=== PATIENT | female | born 1975 | race Caucasian/White ===

== ENCOUNTER 2021-01-21 21:25 | Emergency (ER) | payer MEDICAID ==
[~2021-01-21] VITALS: Ht 160 cm; Wt 111.1 kg
--- NOTE | 2021-01-21 22:03 | NUR ---
PATIENT BIBSELF C/O CONGESTION X 1 MONTH WORST TODAY. PATIENT IS A/O X 4, RR EVEN AND UNLABORED, NO SIGNS OF SOB. PATIENT CONNECTED TO [employer] AND POX.
[2021-01-21] MEDS ORDERED: PROM473S7 PO (22:44)
[2021-01-21] MEDS ORDERED: phenergan (22:44)
[2021-01-21] MEDS ORDERED: ALBU18HF2 INH (22:46)
--- NOTE | 2021-01-21 23:01 | NUR ---
Patient discharged to home in stable condition. RX and Written and verbal after care instructions given. Patient verbalizes understanding of instruction.
[2021-01-21 23:03] VITALS: BP 152/81
== END 2021-01-21 23:04 | disposition home or self-care (01) ==
LOC: ER 21:25
DX: R05 Cough (principal); Z20.822 Contact with and (suspected) exposure to COVID-19; I10 Essential (primary) hypertension; Z95.5 Presence of coronary angioplasty implant and graft; E11.9 Type 2 diabetes mellitus without complications
CPT/HCPCS: 87426; 99283; C9803

== ENCOUNTER 2021-01-24 21:23 | Emergency (ER) | payer MEDICAID, OTHER ==
[~2021-01-24] VITALS: Ht 160 cm; Wt 111.1 kg
[~2021-01-24 21:23] MED LIST: ALBU18HF2 INH; PROM473S7 PO
--- NOTE | 2021-01-24 21:30 | NUR ---
PRESENTED TO THE ER FOR C/O R FOREHEAD BUMPS/P FALL W/ SYNCOPAL EPISODE. PT W/ HX OF CARDIAC STENT AT [facility]. PT A, OX4, AMBULATORY TO BED 2 ER. WAS PLACED NEHEMIAHFranco HOLLOWAY. AWAITING FOR 's NEGRITA
[2021-01-24 22:07] LABS: BASOPHILS # (AUTO) 0.1 K/uL (0.0-0.2); BASOPHILS % (AUTO) 0.7 % (0.0-2.0); EOSINOPHILS % (AUTO) 3.6 % (0.0-6.0); HEMATOCRIT 36 % (33-45); HEMOGLOBIN 11.8 g/dL (11.5-14.8); LYMPHOCYTES # (AUTO) 2.8 K/uL (0.8-4.8); MEAN CORPUSCULAR HGB CONC 33 g/dl (31.0-36.0); MEAN CORPUSCULAR VOLUME 83 fL (82-100); MONOCYTES # (AUTO) 0.5 K/uL (0.1-1.30); MONOCYTES % (AUTO) 5.2 % (2.0-12.0); NEUTROPHILS # (AUTO) 5.6 K/uL (1.8-8.9); NEUTROPHILS % (AUTO) 60.5 % (43.0-81.0); PLATELET COUNT (AUTO) 280 K/uL (150-450); RED BLOOD CELL COUNT(AUTO) 4.36 MIL/uL (4.0-5.2); WHITE BLOOD COUNT (AUTO) 9.2 K/uL (4.3-11.0)
[2021-01-24 22:20] LABS: CALCIUM, SERUM 8.8 mg/dL (8.5-10.1); CARBON DIOXIDE 22 mmol/L (21-32); CHLORIDE 103 mmol/L (98-107); CREATININE 0.9 mg/dL (0.6-1.3); GLUCOSE 150 mg/dL (74-106); POTASSIUM 4.2 mmol/L (3.5-5.1); SODIUM SERUM 137 mmol/L (136-145); UREA NITROGEN, BLOOD 14 mg/dL (7-18)
--- NOTE | 2021-01-24 22:32 | NUR ---
BACK FROM CT
[2021-01-24] MEDS ORDERED: ALBU18HF2 INH (23:53)
--- NOTE | 2021-01-24 23:56 | NUR ---
Patient does not wish to proceed with medical care recommended by Dr. TINAJERO. Patient given information related to possible complications, up to and including , which could occur as a result of leaving the hospital at this time. Patient verbalizes understanding of risks involved due to leaving against medical advice. Patient has signed AMA form.IV removed. Catheter intact and site benign. Pressure and 4x4 applied to site. No bleeding noted.
[2021-01-25 01:02] VITALS: BP 144/85
== END 2021-01-25 | disposition left against medical advice (07) ==
LOC: ER 21:25
DX: R55 Syncope and collapse (principal); S00.83XA Contusion of other part of head, initial encounter; Y92.89 Other specified places as the place of occurrence of the external cause; W18.30XA Fall on same level, unspecified, initial encounter; S80.01XA Contusion of right knee, initial encounter; D32.0 Benign neoplasm of cerebral meninges; I25.10 Atherosclerotic heart disease of native coronary artery without angina pectoris; Z95.5 Presence of coronary angioplasty implant and graft; I10 Essential (primary) hypertension; E11.9 Type 2 diabetes mellitus without complications; Z20.822 Contact with and (suspected) exposure to COVID-19; M54.2 Cervicalgia
CPT/HCPCS: 36415; 70450; 71045; 72125; 73560; 80048; 82962; 84484; 85025; 87426; 93005; 99285; C9803

== ENCOUNTER 2021-02-23 23:28 | Emergency (ER) | payer OTHER ==
[~2021-02-23] VITALS: Ht 160 cm; Wt 110.2 kg
--- NOTE | 2021-02-23 23:40 | NUR ---
PT BIBS WITH COMPLAINTS OF EARPAIN. ALERT AND ORIENTED X4. AMBULATORY WITH NON LABORED SPONTANEOUS BREATHING.
[2021-02-23] MEDS ORDERED: FLUT16SP BNOSTRILS (23:55)
[2021-02-23] MEDS ORDERED: IBUP-1957 PO (23:55)
--- NOTE | 2021-02-24 00:02 | NUR ---
Patient discharged to home in stable condition. Written and verbal after care instructions given. Patient verbalizes understanding of instruction. given RX.
[2021-02-24 00:04] VITALS: BP 130/90
== END 2021-02-24 00:05 | disposition home or self-care (01) ==
LOC: ER 23:35
DX: R59.0 Localized enlarged lymph nodes (principal); I10 Essential (primary) hypertension; E11.9 Type 2 diabetes mellitus without complications; F32.9 Major depressive disorder, single episode, unspecified; E07.9 Disorder of thyroid, unspecified; Z79.899 Other long term (current) drug therapy

== ENCOUNTER 2021-07-11 23:39 | Emergency (ER) | payer OTHER ==
[~2021-07-11] VITALS: Ht 160 cm; Wt 106.6 kg
[~2021-07-11 23:39] MED LIST changes: +FLUT16SP BNOSTRILS; +IBUP-1957 PO
--- NOTE | 2021-07-12 01:35 | NUR ---
PRESENTED TO THE ER FOR C.O FLU LIKE SYMPTOMS SUCH CHILLS, SORE THROAT, BODY ACHE, NEW LOSS OF TASTE AND SMELL. PT WAS TESTED + FOR ANTIGEN COVID ON . TOOK TYLENOL 1500MG AT 1700. PT WAS PLACED IN BED 8, ISOLATION PRECAUTION IMPLEMENTED . NEEDS MET. VSS .WILL CONT TO MONITOR ,
--- NOTE | 2021-07-12 02:31 | NUR ---
CALL FROM LAB. RAPID COVID POSITIVE.
[2021-07-12] MEDS ORDERED: GUAI10SY3 PO ×2 (02:40→02:50)
--- NOTE | 2021-07-12 03:01 | NUR ---
Patient discharged to home in stable condition. Written and verbal after care instructions given. Patient verbalizes understanding of instruction.
[2021-07-12 03:02] VITALS: BP 161/84
== END 2021-07-12 03:02 | disposition home or self-care (01) ==
LOC: ER 23:39
DX: U07.1 COVID-19 (principal); E11.9 Type 2 diabetes mellitus without complications; I10 Essential (primary) hypertension; Z95.5 Presence of coronary angioplasty implant and graft; R51.9 Headache, unspecified
CPT/HCPCS: 87426; 87804; 99283; C9803

== ENCOUNTER 2022-09-19 00:53 | Emergency (ER) | payer OTHER ==
[~2022-09-19] VITALS: Ht 160 cm; Wt 106.6 kg
[~2022-09-19 00:53] MED LIST changes: +GUAI10SY3 PO
[2022-09-19] MEDS ORDERED: TDAP [DIPH/PERTUSSIS/TET] 0.5 ML VIAL IM ONE (01:30)
[2022-09-19 01:46] VITALS: BP 146/93
[2022-09-19] MEDS ORDERED: PSEU60TA98 PO (01:48)
== END 2022-09-19 03:25 | disposition home or self-care (01) ==
LOC: ER 00:56
DX: B34.9 Viral infection, unspecified (principal); I10 Essential (primary) hypertension; E11.9 Type 2 diabetes mellitus without complications; F32.A Depression, unspecified; Z95.1 Presence of aortocoronary bypass graft; Z79.899 Other long term (current) drug therapy; Z20.822 Contact with and (suspected) exposure to COVID-19
CPT/HCPCS: 99284; 71045; 87426; C9803

== ENCOUNTER 2023-05-01 20:14 | Emergency (ER) | payer SELFPAY ==
[~2023-05-01] VITALS: Ht 160 cm; Wt 108.0 kg
[~2023-05-01 20:14] MED LIST changes: +PSEU60TA98 PO
[2023-05-01] MEDS ORDERED: LORAZEPAM 1 MG TABLET PO ONE (21:00)
[2023-05-01] MEDS ORDERED: LORAZEPAM 1 MG TABLET ONE (21:05)
[2023-05-01 22:06] VITALS: BP 138/98; TEMP 98; O2SAT 98
== END 2023-05-01 22:07 | disposition home or self-care (01) ==
LOC: ER 20:23
DX: F41.9 Anxiety disorder, unspecified (principal); F43.9 Reaction to severe stress, unspecified; I10 Essential (primary) hypertension; E11.9 Type 2 diabetes mellitus without complications; F32.A Depression, unspecified; Z79.899 Other long term (current) drug therapy

== ENCOUNTER 2023-11-23 03:22 | Emergency (ER) | payer SELFPAY ==
[~2023-11-23] VITALS: Ht 160 cm; Wt 111.1 kg
[2023-11-23 03:33] VITALS: BP 127/61; TEMP 98.1; O2SAT 100
[2023-11-23] MEDS ORDERED: KETOROLAC TROMETHAMINE INJ 30 MG/ML VIAL ONE (04:04)
[2023-11-23] MEDS: IV NS 0.9% 1,000 ML BAG IV ONE (04:11)
[2023-11-23] MEDS: KETOROLAC TROMETHAMINE 15 MG/ML VIAL IV ONE (04:11)
[2023-11-23 04:12] LABS: BASOPHILS % (AUTO) 0.5 % (0.0-2.0); EOSINOPHILS # (AUTO) 0.2 K/uL (0.0-0.7); EOSINOPHILS % (AUTO) 2.5 % (0.0-6.0); HEMATOCRIT 32 % (33-45); HEMOGLOBIN 10.4 g/dL (11.5-14.8); LYMPHOCYTES # (AUTO) 2.6 K/uL (0.8-4.8); LYMPHOCYTES % (AUTO) 32.4 % (20.0-44.0); MEAN CORPUSCULAR HEMOGLOBIN 25 PG (26.0-33.0); MEAN CORPUSCULAR HGB CONC 33 g/dl (31.0-36.0); MEAN CORPUSCULAR VOLUME 78 fL (82-100); MONOCYTES # (AUTO) 0.5 K/uL (0.1-1.30); MONOCYTES % (AUTO) 5.7 % (2.0-12.0); NEUTROPHILS # (AUTO) 4.7 K/uL (1.8-8.9); NEUTROPHILS % (AUTO) 58.9 % (43.0-81.0); PLATELET COUNT (AUTO) 234 K/uL (150-450); RED CELL DISTRIBUTION WIDTH 17.2 % (11.5-15.0)
[2023-11-23 04:19] LABS: CALCIUM, SERUM 8.8 mg/dL (8.5-10.1); CARBON DIOXIDE 25 mmol/L (21-32); CHLORIDE 101 mmol/L (98-107); CREATININE 0.8 mg/dL (0.6-1.3); GLUCOSE 323 mg/dL (74-106); POTASSIUM 3.7 mmol/L (3.5-5.1); SODIUM SERUM 136 mmol/L (136-145); UREA NITROGEN, BLOOD 16 mg/dL (7-18)
[2023-11-23 04:25] LABS: INR 1.06 (0.91-1.10); PARTIAL THROMBOPLASTIN TIME 25.8 SEC (24.3-34.3); PROTHROMBIN TIME 11.2 SECS (9.2-11.1)
[2023-11-23] MEDS: ropiniROLE 0.5 MG TABLET ONE (04:28)
[2023-11-23] MEDS: ropiniROLE 0.5 MG TABLET PO SCH (04:28)
[2023-11-23 04:33] LABS: ALANINE AMINOTRANSFERASE 55 U/L (12-78); ALKALINE PHOSPHATASE 76 U/L (46-116); ASPARTATE AMINOTRANSFERASE 40 U/L (15-37); BILIRUBIN,DIRECT 0.1 mg/dL (0.0-0.2); BILIRUBIN,TOTAL 0.2 mg/dL (0.2-1.0); NT-PRO BNP 58 pg/mL (0-125); TOTAL PROTEIN, SERUM 7.6 g/dL (6.4-8.2)
== END 2023-11-23 05:45 | disposition left against medical advice (07) ==
LOC: ER 03:30
DX: R53.1 Weakness (principal); I10 Essential (primary) hypertension; E11.9 Type 2 diabetes mellitus without complications; F32.A Depression, unspecified; Z79.899 Other long term (current) drug therapy
CPT/HCPCS: 99285; 96374; 70450; 71045; 96361; 93005; 85025; 80048; 80076; 36415; 84484; 85730; 83880; J1885; J7030

== ENCOUNTER 2024-08-12 17:49 | Emergency (ER) | payer OTHER ==
[~2024-08-12] VITALS: Ht 160 cm; Wt 106.6 kg
[2024-08-12 18:10] VITALS: BP 113/65; TEMP 99
[2024-08-12] MEDS ORDERED: BENZ1LOZ58 PO (18:47)
[2024-08-12] MEDS ORDERED: GUAI600T53 PO (18:47)
[2024-08-12 19:36] VITALS: O2SAT 98
== END 2024-08-12 19:37 | disposition home or self-care (01) ==
LOC: ER 17:53
DX: B34.9 Viral infection, unspecified (principal); E11.9 Type 2 diabetes mellitus without complications; I10 Essential (primary) hypertension; I25.10 Atherosclerotic heart disease of native coronary artery without angina pectoris; Z79.1 Long term (current) use of non-steroidal anti-inflammatories (NSAID); Z95.5 Presence of coronary angioplasty implant and graft; Z98.84 Bariatric surgery status